=== PATIENT | female | born 1995 | race Caucasian/White ===

== ENCOUNTER 2019-01-08 10:31 | Emergency (ER) | payer BC, SELFPAY ==
[2019-01-08 10:33] VITALS: BP 141/98; PULSE 103; RESP 16; TEMP 36.8; O2SAT 97
--- NOTE | 2019-01-08 10:51 | W.ED.GENAD ---
Discharge Plan Disposition Patient Disposition: HOME Condition: Stable Discharge Details Chief Complaint: RespSymp Clinical Impression: URI (upper respiratory infection) Primary Care Provider: Simona,Local ED Provider: Ifeanyi Mccray Home Meds and New Rx's Prescriptions: New benzonatate 200 mg capsule 200 mg PO TID PRN (Reason: cough) Qty: 30 RF: 0 Continued venlafaxine [Effexor XR] 37.5 mg Capsule,Extended Release 24hr 37.5 mg PO QHS RF: 0 venlafaxine [Effexor XR] 75 mg Capsule,Extended Release 24hr 75 mg PO QHS RF: 0 indomethacin 50 mg Capsule 50 mg PO DAILY RF: 0 cholecalciferol (vitamin D3) [Vitamin D3] 1,000 unit Capsule 1,000 unit PO DAILY RF: 0 Bcp 1 tab PO DAILY RF: 0 Discharge Instructions Instructions: Upper Respiratory Infection (ED) Additional Instructions: Return to emergency department for return of any high fevers, difficulty breathing, shortness of breath, or any further concerns you may have. Otherwise take medication as prescribed, get plenty of rest, and stay well-hydrated. Stand Alone Forms: Work Release Referrals: Primary Care Provider [Outside] (as needed for reassessment) Discharge Data Discharge Date/Time-TO BE ENTERED AT DEPARTURE: 01/08/19 11:49 Medical Decision Making Patient presenting to the emergency department for 4 days of nasal congestion, sore throat, cough. Patient does state some laryngitis that was worse over the first couple days but now has improved. Patient also states some subjective fever that was present but also has improved. Physical exam shows nasal congestion without sinus tenderness, clear lung sounds, no lymphadenopathy and otherwise unremarkable HEENT cardiac and respiratory examination. Concern for viral upper respiratory tract infection. 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 I did inform her that she was outside the treatment window for Tamiflu but that I was fine ordering the test. Review test results that showed negative and patient is not so patient prescribed Tessalon Perles and encouraged to continue to use [id number] medications stay well-hydrated get plenty of rest. Patient was also given a work note. Patient did then request a strep testing which patient would not have any classic symptoms of strep pharyngitis and her center's criteria sore would also show no need for strep testing. I did offer it to her but after thorough discussion she denied testing at this time which I feel is reasonable. Return precautions were discussed. After discussion of diagnosis and plan of care patient has no further needs, questions, or concerns and states clear understanding to return to the emergency department for any worsening symptoms. HPI General Mode of arrival: ambulatory. Date/Time Provider Initiated Documentation: 01/08/19 10:38. Limitations to Documentation: no limitations. Information obtained by: patient and RN notes reviewed. History of Present Illness 23 year old F presents to the emergency department with the chief complaint of Cough, laryngitis, nasal congestion, cold symptoms, described as moderate, with intensity rated at 5. and is localized to the neck (Sore throat). Patient started experiencing this day(s) (4) and it has been constant. No relieving factors improve symptom(s), No exacerbating factors reported . Patient did receive the following treatments prior to arrival, other (DayQuil and NyQuil) Related Data Home Medications Medication Instructions Recorded Confirmed Bcp 1 tab PO DAILY 01/08/19 benzonatate 200 mg PO TID PRN #30 cap 01/08/19 cholecalciferol (vitamin D3) 1,000 unit PO DAILY 01/08/19 01/08/19 [Vitamin D3] indomethacin 50 mg PO DAILY 01/08/19 01/08/19 venlafaxine [Effexor XR] 37.5 mg PO QHS 01/08/19 01/08/19 venlafaxine [Effexor XR] 75 mg PO QHS 01/08/19 01/08/19 Previous Rx's Medication Instructions Recorded benzonatate 200 mg PO TID PRN #30 cap 01/08/19 Allergies Allergy/AdvReac Type Severity Reaction Status Date / Time No Known Allergies Allergy Unverified 01/08/19 10:38 General Stated Complaint: RespSymp EMMANUEL: 4 Review of Systems Constitutional Reports body ache(s), Reports chills, Denies fever(s), Reports headache(s) and Reports malaise Eyes Denies eye discharge ENT Reports as per HPI, Reports change in voice, Denies ear discharge, Denies otalgia, Reports headache(s), Reports nasal congestion, Reports nasal discharge, Denies neck pain, Reports sinus pain, Reports sinus pressure, Reports sore throat and Denies throat swelling Cardiovascular Denies chest pain and Denies dyspnea Respiratory Reports cough, Reports pain with cough and Denies dyspnea Musculoskeletal Denies joint swelling and Denies neck pain Integumentary/Breasts Denies rash Neurologic Reports headache(s) Allergic/Immunologic Denies throat swelling [facility] Social History Smoking and Tabacco status: Never Exam Const General: cooperative, comfortable and no acute distress Orientation: alert and awake [facility] Head: normal to inspection, normocephalic and atraumatic Ears: hearing grossly normal bilaterally and TM's normal bilaterally General nose exam: external nose normal Face and sinus: normal facial exam, sinuses nontender and no erythema Mouth: oral mucosae normal, lip normal, tongue normal, no drooling and no trismus Throat: posterior oropharynx normal Neck Neck: normal visual inspection, full ROM, no lymphadenopathy, no meningeal signs, trachea midline and supple Resp Effort & Inspection: normal respiratory effort, able to speak in complete sentences and cough Quality of cough: dry Auscultation: clear to auscultation bilaterally Cardio Rate: regular rate Rhythm: regular rhythm Heart Sounds: S1 normal, S2 normal, normal S1 and S2, no click, no gallops, no murmurs and no rubs Skin General skin exam: no rashes or lesions noted and dry skin (warm) Neuro General: alert, awake, oriented x3, gait normal and moves all extremities Cognition: normal cognition Speech: speech normal Course Vital Signs Temperature 36.8 C 01/08/19 10:33 Pulse 103 H 01/08/19 10:33 Respiratory Rate 16 01/08/19 10:33 Blood Pressure 141/98 H 01/08/19 10:33 Pulse Oximetry 97 01/08/19 10:33 Temperature 36.8 C 01/08/19 10:33 Temperature Source Temporal Artery Scan 01/08/19 10:33 Pulse 103 H 01/08/19 10:33 Respiratory Rate 16 01/08/19 10:33 Respiratory Effort Non-Labored 01/08/19 10:42 Respiratory Depth Normal 01/08/19 10:42 Blood Pressure 141/98 H 01/08/19 10:33 Blood Pressure Position Sitting 01/08/19 10:33 Pulse Oximetry 97 01/08/19 10:33 Oxygen Delivery Method Room Air 01/08/19 10:33 Oxygen Flow Rate 0 01/08/19 10:33 Pain Level 5 01/08/19 10:33
== END 2019-01-08 11:49 | disposition home or self-care (01) ==
PROVIDERS: Emergency Provider Nurse Practitioner Family; PCP Family Medicine
DX: J06.9 Acute upper respiratory infection, unspecified (principal)
CPT/HCPCS: 81025; 87449; 99283

== ENCOUNTER 2020-11-15 13:58 | Outpatient (CLI) | payer BC, SELFPAY ==
[2020-11-18 21:32] LABS: COVID-19 RT-PCR Result NEGATIVE (Negative)
== END 2020-11-15 14:18 ==
PROVIDERS: PCP Family Medicine; Visit Provider Family Medicine
DX: J06.9 Acute upper respiratory infection, unspecified (principal)
CPT/HCPCS: U0003

== ENCOUNTER 2021-01-06 11:49 | Outpatient (CLI) | payer BC, SELFPAY ==
[2021-01-07 13:41] LABS: COVID-19 RT-PCR UVMMC Result Negative (Negative)
== END 2021-01-06 11:50 | disposition home or self-care (01) ==
LOC: LBO 11:50
PROVIDERS: PCP Family Medicine; Visit Provider Family Medicine
DX: Z20.822 Contact with and (suspected) exposure to COVID-19 (principal)
CPT/HCPCS: U0003